=== PATIENT | male | born 1960 | race Caucasian/White ===

== ENCOUNTER 2019-03-03 21:56 | Emergency (ER) | payer OTHER ==
[~2019-03-03] VITALS: Ht 182.9 cm; Wt 77.6 kg
[~2019-03-03 21:56] MED LIST: LIDOcaine 1% W/epiNEPHrine 1:100,000 20ml vial ONE
[2019-03-03] MEDS ORDERED: TETanus/Pertussis (Acell)/Diphther VAC/PF (Tdap-Adult) 0.5ml syringe IM ONE (22:10)
[2019-03-03] MEDS ORDERED: LIDOcaine 1% w/EPI 1:200,000 injection 10mL vial IM ONE (22:10)
[2019-03-03] MEDS ORDERED: amox tr/potassium clavulanate 875/125mg TAB PO ONE (23:40)
[2019-03-03] MEDS ORDERED: AMOX-580 PO (23:43)
[2019-03-04 00:09] VITALS: BP 141/94
== END 2019-03-04 00:13 | disposition home or self-care (01) ==
LOC: ER 21:56
DX: S61.451A Open bite of right hand, initial encounter (principal); S51.852A Open bite of left forearm, initial encounter; Z79.2 Long term (current) use of antibiotics; W54.0XXA Bitten by dog, initial encounter; Y93.89 Activity, other specified; Y92.89 Other specified places as the place of occurrence of the external cause; Y99.8 Other external cause status
CPT/HCPCS: 12002; 73120; 90471; 99284

== ENCOUNTER 2019-09-26 19:35 | Emergency (ER) | payer BC ==
[~2019-09-26] VITALS: Ht 182.9 cm; Wt 94.0 kg
[2019-09-26] MEDS ORDERED: bacitracin 15gm ointment TP ONE (20:05)
[2019-09-26] MEDS ORDERED: LIDOcaine 1% W/epiNEPHrine 1:200,000 10ml vial IJ ONE (20:05)
[2019-09-26] MEDS ORDERED: CEPH250T PO (20:41)
[2019-09-26 20:58] VITALS: BP 129/92
== END 2019-09-26 20:58 | disposition home or self-care (01) ==
LOC: ER 19:35
DX: S81.812A Laceration without foreign body, left lower leg, initial encounter (principal); R58 Hemorrhage, not elsewhere classified; Z88.2 Allergy status to sulfonamides; Z79.2 Long term (current) use of antibiotics; W45.8XXA Other foreign body or object entering through skin, initial encounter; Y93.89 Activity, other specified; Y92.89 Other specified places as the place of occurrence of the external cause; Y99.8 Other external cause status
CPT/HCPCS: 12002; 99283

== ENCOUNTER 2021-02-23 07:17 | Day surgery (SDC) | payer BC ==
[2021-02-18 14:38] LABS: BASOPHILS % (AUTO) 0.2 % (0-1); EOSINOPHILS % (AUTO) 0.1 % (0-6); LYMPHOCYTES # (AUTO) 0.7 X10'3 (1.1-4.8); LYMPHOCYTES % (AUTO) 6.9 % (21-51); MEAN CORPUSCULAR HEMOGLOBIN 29.1 PG (27.0-31.0); MEAN CORPUSCULAR HGB CONC 32.8 g/dL (33.0-36.5); MEAN CORPUSCULAR VOLUME 88.9 FL (78-98); MEAN PLATELET VOLUME 9.2 FL (7.4-10.4); MONOCYTES # (AUTO) 0.8 X10'3 (0-0.9); MONOCYTES % (AUTO) 7.4 % (2-12); NEUTROPHILS # (AUTO) 8.9 X10'3 (1.8-7.7); NEUTROPHILS % (AUTO) 85.4 % (42-75); PRE OP HEMATOCRIT 44.8 % (42.0-52.0); PRE OP HEMOGLOBIN 14.7 g/dL (14.0-17.9); PRE OP PLATELET COUNT 247 X10'3 (140-440); RED BLOOD COUNT 5.04 X10'6 (4.70-6.10); RED CELL DISTRIBUTION WIDTH 14.7 % (11.5-14.5)
[2021-02-18 14:51] LABS: PRE OP PROTIME 10.2 SECONDS (9.0-12.0)
[2021-02-18 14:54] LABS: ALBUMIN 3.7 G/DL (3.4-5.0); ALBUMIN/GLOBULIN RATIO 1.1 (1.1-1.5); ALKALINE PHOSPHATASE 58 IU/L (46-116); BLOOD UREA NITROGEN 23 MG/DL (7-18); BUN/CREATININE RATIO 16.2 (5.4-32.0); CALCIUM 8.9 MG/DL (8.5-10.1); CHLORIDE 107 MMOL/L (99-107); CREATININE 1.42 MG/DL (0.60-1.10); PRE OP ALT 40 U/L (30-65); PRE OP ANION GAP 10 (8-16); PRE OP AST 10 U/L (10-37); PRE OP BILIRUB, TOTAL 0.4 MG/DL (0.0-1.0); PRE OP GLUCOSE 109 MG/DL (70-104); PRE OP POTASSIUM 4.6 MMOL/L (3.4-5.1); PRE OP SODIUM 145 MMOL/L (135-145); TOTAL CARBON DIOXIDE 28.4 MMOL/L (24-32); TOTAL PROTEIN 7.1 G/DL (6.4-8.2); eGFR 51 ML/MIN
[2021-02-23] VITALS (19 sets, daily range): BP systolic 138–165; BP diastolic 70–113
[~2021-02-23] VITALS: Ht 182.9 cm; Wt 106.8 kg
[~2021-02-23 07:17] MED LIST changes: +CHOL100025 PO; -LIDOcaine 1% W/epiNEPHrine 1:100,000 20ml vial ONE; +diazepam 5mg tablet PO PRN; +famotidine 20mg tablet PO ONE; +oxymetazoline 15 ML nasal spray NS PRN; +ringers solution, lacted 1,000 ML IV SCH
[2021-02-23] MEDS ORDERED: meperidine/PF 25mg/ml syringe IV PRN ×2 (08:50)
[2021-02-23] MEDS ORDERED: proCHLORperazine 10 MG/2 ml inj IV PRN (08:50)
[2021-02-23] MEDS ORDERED: ringers solution, lacted 1,000 ML IV SCH (08:50)
[2021-02-23] MEDS ORDERED: morphine 4 MG/ML inj SYRINge IV PRN (08:50)
[2021-02-23] MEDS ORDERED: morphine 2 MG/ML inj. syringe IV PRN (08:50)
[2021-02-23] MEDS ORDERED: ondansetron/PF 4mg/2ml inj IV PRN (08:50)
[2021-02-23] MEDS ORDERED: LIDOcaine 2% (20mg/ml) 5ml vial ONE (09:24)
[2021-02-23] MEDS ORDERED: propofol inj 20 ML IV ONE (09:24)
[2021-02-23] MEDS ORDERED: midazolam 1 mg/ML 2ml injection ONE (09:25)
[2021-02-23] MEDS ORDERED: fentaNYL /PF 50mcg/ml 5ml ampule ONE (09:26)
[2021-02-23] MEDS ORDERED: cocaine 4% topical solution 4ml bottle ONE (09:43)
[2021-02-23] MEDS ORDERED: LIDOCAINE 1%/EPI 1:100,000 inj. 10 ML multi-dose vial ONE (09:44)
[2021-02-23] MEDS ORDERED: oxymetazoline 15 ML nasal spray NS ONE (09:44)
[2021-02-23] MEDS ORDERED: mupirocin 2% ointment 22GM ONE (09:44)
[2021-02-23] MEDS ORDERED: sevoflurane 250ml liquid IH ONE (10:00)
[2021-02-23] MEDS ORDERED: dexamethasone sod phosphate 10mg/ml inj ONE (10:00)
[2021-02-23] MEDS ORDERED: ondansetron/PF 4mg/2ml inj ONE (10:25)
[2021-02-23] MEDS ORDERED: esmolol inj. 10 ML IV ONE (12:30)
--- NOTE | 2021-02-23 12:45 | NUR ---
Received from OR via [facility] IN STABLE CONDITION, accompanied by Anesthesiologist and [employer] report given by [employer] AND Anesthesiolgist. Addendum: 02/23/21 at 1636 by Crista Bartlett RN Amended: Links added.
[2021-02-23] MEDS: meperidine/PF 25mg/ml syringe IV PRN ×2 (13:02→13:32)
[2021-02-23] MEDS: labetalol 20mg/4ml (5mg/ml) syringe IV PRN ×3 (13:37→14:09)
[2021-02-23] MEDS ORDERED: salt irrigation nasal spray 45 ML SPRAY NS PRN (14:20)
[2021-02-23] MEDS ORDERED: hydrALAZINE 20mg/ml inj. IV PRN (14:55)
--- NOTE | 2021-02-23 15:45 | NUR ---
PATIENT DISCHARGED FROM PACU IN STABLE CONDITION AFTER WRITTEN AND VERBAL DISCHARGE INSTRUCTIONS GIVEN. PATIENT AND GAVE VERBAL UNDERSTANDING OF INSRUCTIONS GIVEN. PATIENT LEFT FACILITY VIA WHEELCHAIR WITH RN. Addendum: 02/23/21 at 1638 by Crista Bartlett RN Amended: Links added.
== END 2021-02-23 15:45 | disposition home or self-care (01) ==
LOC: PAS 07:17
PROVIDERS: ATTEND Otolaryngology
DX: J34.2 Deviated nasal septum (principal); J34.3 Hypertrophy of nasal turbinates; J34.89 Other specified disorders of nose and nasal sinuses; J32.8 Other chronic sinusitis; Z20.822 Contact with and (suspected) exposure to COVID-19; Z79.01 Long term (current) use of anticoagulants; Z79.899 Other long term (current) drug therapy; Z98.890 Other specified postprocedural states; Z91.011 Allergy to milk products; Z91.09 Other allergy status, other than to drugs and biological substances
CPT/HCPCS: 30140; 30520; 31240; 31253; 31259; 31267; 36415; 61782; 76380; 80053; 82948; 85025; 85576; 85610; 85730; 87635; 93005; A6402; C1726; C9250; C9803; J0360; J0780; J1100; J2001; J2175; J2250; J2405; J2704; J3010; J7040; J7120; U0003; U0005; Z7506; Z7508; Z7512; A4618; A7000; J3490

== ENCOUNTER 2021-02-28 11:17 | Emergency (ER) | payer BC ==
[~2021-02-28] VITALS: Ht 182.9 cm; Wt 102.3 kg
[~2021-02-28 11:17] MED LIST changes: -diazepam 5mg tablet PO PRN; -famotidine 20mg tablet PO ONE; -oxymetazoline 15 ML nasal spray NS PRN; -ringers solution, lacted 1,000 ML IV SCH
[2021-02-28] MEDS ORDERED: acetaminophen 325mg tablet PO ONE (12:00)
[2021-02-28 12:41] LABS: BASOPHILS % (AUTO) 0.3 % (0-1); EOSINOPHILS # (AUTO) 0.1 X10'3 (0-0.9); EOSINOPHILS % (AUTO) 1.3 % (0-6); HEMATOCRIT 43.7 % (42.0-52.0); HEMOGLOBIN 15.1 g/dl (14.0-17.9); LYMPHOCYTES # (AUTO) 0.8 X10'3 (1.1-4.8); LYMPHOCYTES % (AUTO) 7.2 % (21-51); MEAN CORPUSCULAR HGB CONC 34.5 g/dL (33.0-36.5); MEAN PLATELET VOLUME 8.6 FL (7.4-10.4); MONOCYTES # (AUTO) 1.4 X10'3 (0-0.9); MONOCYTES % (AUTO) 12.6 % (2-12); NEUTROPHILS # (AUTO) 8.8 X10'3 (1.8-7.7); NEUTROPHILS % (AUTO) 78.6 % (42-75); PLATELET COUNT 231 X10'3 (140-440); RED BLOOD COUNT 5.03 X10'6 (4.70-6.10); RED CELL DISTRIBUTION WIDTH 14.1 % (11.5-14.5); WHITE BLOOD COUNT 11.2 X10'3 (4.5-11.0)
[2021-02-28 12:50] LABS: ALBUMIN 3.4 G/DL (3.4-5.0); ANION GAP 12 (8-16); BLOOD UREA NITROGEN 15 MG/DL (7-18); CALCIUM 8.9 MG/DL (8.5-10.1); CHLORIDE 97 MMOL/L (99-107); GLUCOSE 112 MG/DL (70-104); POTASSIUM 3.6 MMOL/L (3.5-5.1); SODIUM 135 MMOL/L (135-145); TOTAL CARBON DIOXIDE 26.4 MMOL/L (24-32)
[2021-02-28] MEDS ORDERED: amox tr/potassium clavulanate 875/125mg TAB PO ONE (12:50)
[2021-02-28 12:54] LABS: BUN/CREATININE RATIO 11.4 (5.4-32.0); CREATININE 1.32 MG/DL (0.60-1.10); eGFR 55 ML/MIN
[2021-02-28 12:59] VITALS: BP 128/91
[2021-02-28] MEDS ORDERED: iohexol 300mg/ml 100ml inj. ONE (13:03)
[2021-02-28] MEDS ORDERED: AMOX-422 PO (15:53)
== END 2021-02-28 16:23 | disposition home or self-care (01) ==
LOC: ER 11:18
DX: T81.9XXA Unspecified complication of procedure, initial encounter (principal); R50.9 Fever, unspecified; Z88.2 Allergy status to sulfonamides; Z79.899 Other long term (current) drug therapy
CPT/HCPCS: 36415; 70487; 80048; 83605; 85025; 99285; Q9967